=== PATIENT | male | born 1955 | race Caucasian/White ===

== ENCOUNTER 2022-09-08 07:57 | Emergency (ER) | payer MEDICARE, OTHER ==
[2022-09-08] MEDS ORDERED: Ondansetron PF 4 MG/2 ML Vial ONE ×2 (09:18→10:57)
[2022-09-08] MEDS ORDERED: Piperacillin/Tazobactam 4.5 GM VIAL ONE (09:18)
[2022-09-08] MEDS ORDERED: Fentanyl 100 MCG/2 ML VIAL ONE (09:18)
[2022-09-08] MEDS ORDERED: Sodium Chloride 0.9% 100 ML ONE (09:18)
[2022-09-08] MEDS ORDERED: Ondansetron ODT 4 MG TAB ONE (09:19)
[2022-09-08 09:40] LABS: #Eosinphils 0.2 thou/uL (0.0-0.7); #Lymphocytes 2.2 thou/uL (1.20-3.40); #Monocytes 1.2 thou/uL (0.11-0.59); #Neutrophils 13.4 thou/uL (1.40-6.50); %Basophils 0.2 % (0.0-1.0); %Monocytes 7.1 % (0.0-10.0); %Neutrophils 78.7 % (42.0-75.0); Hemoglobin 16.2 g/dL (14.0-18.0); Mean Corpuscular HGB CONC 33.8 g/dL (32.0-36.0); Mean Corpuscular Hemoglobin 31.2 pg (27.0-31.0); Mean Corpuscular Volume 92.1 fl (78.0-98.0); Platelet Count 249 10x3/uL (130-400); RBC Distribution Width 11.9 % (11.5-14.5); Red Blood Cell (RBC) Count 5.21 mill/uL (4.70-6.10); White Blood Cell (WBC) Count 17.1 10x3/uL (4.8-10.8)
[2022-09-08 10:00] LABS: ALT (SGPT) 25 U/L (8-55); AST (SGOT) 17 U/L (5-34); Albumin 4.5 g/dL (3.4-4.8); Alkaline Phosphatase 67 U/L (40-110); Anion Gap 16 mmol/L (10-20); BUN (Urea Nitrogen) 14 mg/dL (8.4-25.7); Bilirubin, Total 0.9 mg/dL (0.2-1.2); Calc. Creatinine Clearance 0 mL/min (70-130); Calcium 9.7 mg/dL (7.8-10.44); Carbon Dioxide 26 mmol/L (23-31); Chloride 99 mmol/L (98-107); Estimated GFR 81; Globulin 3.5 g/dL (2.4-3.5); Glucose 145 mg/dL (80-115); Potassium 3.4 mmol/L (3.5-5.1); Sodium 138 mmol/L (136-145)
[2022-09-08] MEDS ORDERED: Morphine 4 MG/ML VIAL ONE (10:57)
[2022-09-08] MEDS ORDERED: Iopamidol 370 76% 100 ML VIAL ONE (17:32)
== END 2022-09-08 11:18 | disposition home or self-care (01) ==
LOC: BURERS 07:57
DX: J36 Peritonsillar abscess (principal); E78.5 Hyperlipidemia, unspecified; I10 Essential (primary) hypertension; E03.9 Hypothyroidism, unspecified; F17.220 Nicotine dependence, chewing tobacco, uncomplicated; E11.9 Type 2 diabetes mellitus without complications; Z79.84 Long term (current) use of oral hypoglycemic drugs; Z79.899 Other long term (current) drug therapy; Z79.82 Long term (current) use of aspirin
CPT/HCPCS: 36415; 70491; 80053; 83605; 85025; 87040; 96365; 96375; J2270; J2405; J2543; J3010; J3490; Q0162; Q9967

== ENCOUNTER 2025-07-21 10:15 | Emergency (ER) | payer MEDICARE, OTHER ==
[2025-07-21] MEDS ORDERED: Lidocaine 1% PF 5 ML VIAL ONE (10:41)
[2025-07-21] MEDS ORDERED: Clindamycin 150 MG CAP ONE (10:59)
== END 2025-07-21 11:11 | disposition home or self-care (01) ==
LOC: BURERS 10:15
DX: S43.401A Unspecified sprain of right shoulder joint, initial encounter (principal); L02.511 Cutaneous abscess of right hand; I10 Essential (primary) hypertension; X50.9XXA Other and unspecified overexertion or strenuous movements or postures, initial encounter
CPT/HCPCS: 10060; 87070; 87205

== ENCOUNTER 2025-08-31 11:13 | Emergency (ER) | payer MEDICARE, OTHER | END 2025-08-31 12:07 | disposition home or self-care (01) | LOC: BURERS 11:13 | DX: L03.011 Cellulitis of right finger (principal); I10 Essential (primary) hypertension; E11.9 Type 2 diabetes mellitus without complications; F17.220 Nicotine dependence, chewing tobacco, uncomplicated; Z95.5 Presence of coronary angioplasty implant and graft; Z55.6 Problems related to health literacy; Z59.71 Insufficient health insurance coverage; Z59.00 Homelessness unspecified; Z75.8 Other problems related to medical facilities and other health care ==